=== PATIENT | female | born 1940 | race Caucasian/White ===

== ENCOUNTER → 2017-01-21 | Outpatient (CLI) | payer MEDICARE ==
[~2017-01-21] MED LIST: AMITRIPTYLINE H10 MG PO; ARTHRITIS PAIN650 M1 PO; ASPIRIN EC81 MG PO; ASPIRIN325 MG PO; BENTYL10 MG PO; BREO ELLIPTA 11 EACH INH; CHOLESTYRAMINE P4 GM PO; DELTASONE20 MG PO; DPS FOR LIBRAX1 CAP PO; ESTRACE0.5 MG PO; FLONASE 50 MCG/16 GM NOSE; IPRAT-ALBUT 0.5-3 ML INH; LEVAQUIN500 MG PO; LOMOTIL1 TAB PO; PAXIL20 MG PO; PERCOCET 5-3251 EACH PO; PRESERVISION L1 EACH PO; PROMETH-CODEIN 65 ML PO; RAMIPRIL2.5 MG PO; TAMIFLU75 MG PO; TOPROL XL 5050 MG PO; TYLENOL PM EX-1 EACH PO; ZOCOR40 MG PO
[2017-01-21 16:41] LABS: BASOPHIL % 0.7 %; EOSINOPHIL # 0.3 K/uL (0.0-0.5); EOSINOPHIL % 7.7 %; HEMATOCRIT 38.1 % (33.0-46.0); HEMOGLOBIN 12.2 g/dL (10.0-15.0); LYMPHOCYTE # 2.1 K/uL (0.8-4.0); MONOCYTE # 0.4 K/uL (0.0-1.0); MONOCYTE % 8.4 %; MPV 11.1 fl (9.4-12.4); NEUTROPHIL # (ANC) 1.5 K/uL (1.8-7.8); NEUTROPHIL % 35.2 %; NRBC % 0 /100WBC (0-0.00); PLATELET COUNT 173 K/uL (150-450); RDW-CV 13.4 % (11.9-14.6); WBC 4.3 K/uL (4.0-11.0)
[2017-01-21 16:58] LABS: ANION GAP 10.6 (10.0-19.0); CALCIUM 9.1 mg/dL (8.5-10.5); CREATININE 0.8 mg/dL (0.5-1.1); POTASSIUM 4.6 mMol/L (3.7-5.1)
== END ==
LOC: LNHI 16:34
PROVIDERS: Internal Medicine Interventional Cardiology
DX: R53.83 Other fatigue (principal); I10 Essential (primary) hypertension